=== PATIENT | female | born 1955 | race Caucasian/White ===

== ENCOUNTER 2017-07-13 12:39 | Day surgery (SDC) | payer BC ==
[~2017-07-13] VITALS: Ht 162.6 cm; Wt 62.9 kg
[2017-07-13 13:07] VITALS: Ht 162.6 cm; Wt 62.9 kg
[2017-07-13] MEDS ORDERED: LEVO88TA3 PO (13:16)
[2017-07-13] MEDS ORDERED: ATOR10TA65 PO (13:16)
[2017-07-13] MEDS ORDERED: LIDOCAINE 100 MG SYRINGE ONE (13:49)
[2017-07-13] MEDS ORDERED: PROPOFOL 40 ML ONE (13:49)
[2017-07-13 13:54] VITALS: BP 130/83; PULSE 81; RESP 18
--- NOTE | 2017-07-13 14:17 | OPPN ---
Date/Time of Note Date/Time of Note DATE: 07/13/17 TIME: 14:14 Proc Note GI Procedure Date 07/13/17 Indication: other (CRC screening) Pre-procedure Diagnosis CRC screening Post-procedure Diagnosis Impression: 3 mm polyp distal descending colon. Ablated Moderate left-sided diverticulosis. Moderate-sized internal hemorrhoids. Plan: Follow up as scheduled] High fiber diet Annual hemoccult stool testing [Review pathology] [Surveillance colonoscopy in 5 years] . Procedure Performed: Colonoscopy (Plus ablation) Surgeon MARK MEDELLIN MD See signature line Well Tender none Anesthesia Type: MAC Anesthesiologist: Raz Bustos M.D. Tourniquet Time none EBL none Transfusion required none Biopsy 1: None Polyp 1: Distal descending colon Grafts/Implants none Tubes/Drains none Complication(s) none Disposition: home Procedure Description After informed consent, with the patient/relatives understanding the procedure, its indications and potential risks and complications, including but not limited to: Allergic reaction, bleeding, perforation, infection, and after all pertinent questions were answered to the patient's satisfaction, the patient/ relatives signed the witnessed informed consent. Following this, premedication was administered slowly IV push under careful cardiovascular and respiratory monitoring with pulse OXIM[employer]RY, automatic blood pressure, and radiology physician assistant. Once the sedative effect was achieved, the patient was placed in the left lateral decubitus position, digital rectal examination was performed. The colonoscope was then introduced and advanced under visual control throughout all segments of the colon including: the rectum, sigmoid, descending colon, splenic flexure, transverse colon, hepatic flexure, ascending colon and finally reaching the cecum which was clearly identified by transillumination, finger indentation and the ileocecal valve. Careful examination of the mucosa of the lower gastrointestinal tract both on insertion as well as withdrawal of the instrument disclosed the following findings: PREPARATION QUALITY: [Adequate], RECTAL EXAM: The anorectal area was visualized examined and digital rectal examination performed with the following findings: No evidence of perirectal disease, no masses. COLONIC MUCOSA: The mucosa of all segments of the colon was carefully examined and showed the following findings: There is a 3 mm polyp in the distal descending colon. Ablated with biopsy forceps. There is moderate diverticulosis left;. Moderate-sized internal hemorrhoids. Otherwise the examined mucosa appears within normal limits. There is no evidence of inflammatory changes, diverticular formation, other polyps or neoplasms, vascular malformation, or any other abnormality. The instrument was then withdrawn, the patient tolerated the procedure well and was transferred out of the Endoscopy Suite awake and in good condition to continue recovery under observation. Copies To: CC: MARK MEDELLIN MD, MORDO MD Jul 13, 2017 14:17
[2017-07-13 14:50] VITALS: BP 141/76; PULSE 71; RESP 18
== END 2017-07-13 20:59 | disposition home or self-care (01) ==
LOC: GIL 12:39
PROVIDERS: ATTEND Internal Medicine Gastroenterology
DX: Z12.11 Encounter for screening for malignant neoplasm of colon (principal); K57.90 Diverticulosis of intestine, part unspecified, without perforation or abscess without bleeding; K64.8 Other hemorrhoids
CPT/HCPCS: 45380; 88305; J2001